=== PATIENT | male | born 1950 | race Caucasian/White ===

== ENCOUNTER 2025-07-31 10:33 | Outpatient (AMB) | payer MEDICARE, SELFPAY ==
[2025-07-31 11:24] VITALS: BP 120/62; PULSE 61; O2SAT 99; BMI 24.3
--- NOTE | 2025-07-31 11:24 | HO.NEPHOV_ITS ---
Vital Signs 07/31/25 11:24 Height 6 ft Weight 179 lb BMI 24.3 BP 120/62 Blood Pressure Location Lt brachial Position Sitting Pulse 61 Pulse Source Pulse Oximeter Pulse Oximetry (%) 99 Oxygen Delivery Method Room Air Intake Visit Reasons: ENP- CKD stg 4 with anemia, confirmed Phlebotomy Specialist Required: No Accompanied by: Self / Same As Patient Allergies pollen extracts Allergy (Verified 07/31/25 11:26) Sneezing HPI Comments Details: 75-year-old gentleman with past medical history of hypertension, hyperlipidemia, CAD s/p CABG and AVR, ischemic cardiomyopathy, carotid artery stenosis, cardiac arrest secondary to VF in 05/2020, pseudoaneurysm of ascending aorta has chronic kidney disease, possibly he had PETER on CKD needing hemodialysis from 09/2022 till 03/2023. He is originally from [place], lives with Xiomara and they have 4 children. 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 CAD//ischemic cardiomyopathy: EF 30% moderate to severe MR and TR in 02/2024. Bioprosthetic aortic valve and CABG in 2019. He is on entresto, metoprolol 25mg BID BPH: on tamsulosin He was getting erythropoeitin 20k every week from [facility] until 3 months ago, he received a transfusion 3 weeks ago for low Hb. She had a bone marrow biopsy at [facility] which showed hypocellular marrow with 20% cellularity . He is extremely weak, easily fatigued. [facility] Medical History (Updated 07/31/25 @ 12:12 by Ronny Rios MD) Stress hyperglycemia Severe protein-calorie malnutrition Ischemic cardiomyopathy Impaired fasting glucose Gastrointestinal hemorrhage Endocarditis Delirium Critical illness myopathy Cataract Cardiogenic shock Cardiac arrest with ventricular fibrillation Acute non-ST elevation myocardial infarction (NSTEMI) Anemia ESRD on hemodialysis Chronic kidney disease PVD (peripheral vascular disease) Left carotid artery stenosis Dyslipidemia Hypertension Former tobacco use Gastritis Coronary artery disease Septic endocarditis Pseudoaneurysm of aorta Surgical History Hx of tonsillectomy History of cataract surgery History of cardiac defibrillator placement S/P AVR Hx of CABG S/P thoracotomy Family History Mother Dementia Son Cerebral palsy Review of Systems Const Details: Const : no body aches, no chills, no excessive sweating and +fatigue Eyes: no blurry vision and no change in vision ENT: no bleeding gums and no change in voice, no dizziness Card: no chest pain, no shortness of breath, no orthopnea, no PND Resp: no cough, no excessive phlegm production, no SOB GI: no abdominal pain and no nausea, no vomiting : no hematuria, no urinary frequency and no difficulty voiding Musc: no abnormal gait, no bone pain Neuro: no abnormal movements, + weakness, no dizziness Psych: no behavioral changes and no change in appetite Endo: no change in body appearance, no cold intolerance,+ fatigue Physical Exam Vital Signs: Last Vital Signs Pulse 61 07/31/25 11:24 BP 120/62 07/31/25 11:24 Pulse Ox 99 07/31/25 11:24 Oxygen Delivery Method Room Air 07/31/25 11:24 BMI result Body Mass Index 24.3 General: not in any acute distress, comfortable, sitting on the chair Nutritional Appearance: well nourished and weight Eyes: normal position, no icterus Neck: No lymphadenopathy, no thyromegaly Resp: bilateral air entry equal, no added sounds present Cardio: normal S1, S2 heard, no murmur heard, no edema GI: soft, nontender, no guarding, no hepatosplenomegaly : bladder normal to inspection, bladder normal to palpation Skin: no rashes or lesions noted and elasticity normal Neuro: oriented to person, oriented to place, oriented to time and moves all extremities Assessment & Plan Assessment & Plan (1) Chronic kidney disease: Code(s): N18.9 - Chronic kidney disease, unspecified Category: Medical (2) Anemia: Code(s): D64.9 - Anemia, unspecified Category: Medical Plan 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 - no family history of CKD, no history of renal stones in the past, NSAID use. - creatinine 3.6 , GFR 17 - will get urinalysis, urine microalbumin creatinine ratio and UPCR - avoid nephrotoxic medications not limited to NSAIDs, contrast etc. - importance of diet, weight loss, adequate blood pressure control, stop smoking well explained to patient - will get hepatitis panel, HIV, TEMO, ANCA, complements, SPEP, UPEP, serum free light chains to rule out other etiologies of CKD. Hypertension: - target blood pressures less than 130/90 mm Hg - continue entresto and metoprolol 25 ER Anemia of chronic kidney disease: - Hb fluctuating betweem 8.2 on 07/12/25 to 9.9 on 07/24/2025 - poor GFR - bone marrow biopsy showing hypocellular marrow - Ferritin 588, Fe 57, TS 30% - will give erythropoietin shots 20k U every other week in the clinic. First dose given today, possibly needs to switch to or [facility] for renal care to ease regular scheduling of biweekly shots. - explained the patient about possible adverse effects of erythropoietin injection including hypertension and risk for stroke. He states he understands the risk but needs them as low hemoglobin will make him fatigued and unable to perform his work. This note is constructed using voice recognition software. While every effort has been made to ensure accuracy [employer] errors may have been included. Total time spent in the clinic is about 40 minutes, 10 minutes on chart review, review of data, 20 minutes on encounter, physical examination, counseling, answering all the questions, 10 minutes on documentation. Orders: Orders UA and rflx microscopic Today D64.9 - Anemia, unspecified, N18.9 - Chronic kidney disease, unspecified Microalbumin, Random (w Creat) Today D64.9 - Anemia, unspecified, N18.9 - Chronic kidney disease, unspecified Total Protein Urine Random Today D64.9 - Anemia, unspecified, N18.9 - Chronic kidney disease, unspecified Parathyroid Hormone Intact Today D64.9 - Anemia, unspecified, N18.9 - Chronic kidney disease, unspecified [place]/Lambda Light Chain Serum Today D64.9 - Anemia, unspecified, N18.9 - Chronic kidney disease, unspecified Hepatitis B,C Profile Today D64.9 - Anemia, unspecified, N18.9 - Chronic kidney disease, unspecified ANCA Vasculitides Today D64.9 - Anemia, unspecified, N18.9 - Chronic kidney disease, unspecified Complement C3 Today D64.9 - Anemia, unspecified, N18.9 - Chronic kidney disease, unspecified Complement C4 Today D64.9 - Anemia, unspecified, N18.9 - Chronic kidney disease, unspecified Basic Metabolic Panel 3 Months D64.9 - Anemia, unspecified, N18.9 - Chronic kidney disease, unspecified Complete Blood Count no Diff 3 Months D64.9 - Anemia, unspecified, N18.9 - Chronic kidney disease, unspecified UA and rflx microscopic 3 Months D64.9 - Anemia, unspecified, N18.9 - Chronic kidney disease, unspecified Basic Metabolic Panel Today D64.9 - Anemia, unspecified, N18.9 - Chronic kidney disease, unspecified IRON PROFILE Today D64.9 - Anemia, unspecified, N18.9 - Chronic kidney disease, unspecified Complete Blood Count no Diff Today D64.9 - Anemia, unspecified, N18.9 - Chronic kidney disease, unspecified Vitamin D 25-OH Total Today D64.9 - Anemia, unspecified, N18.9 - Chronic kidney disease, unspecified Protein Electrophoresis, Serum Today D64.9 - Anemia, unspecified, N18.9 - Chronic kidney disease, unspecified Protein Electrophoresis,Ran Ur Today D64.9 - Anemia, unspecified, N18.9 - Chronic kidney disease, unspecified HIV Ab/Ag Today D64.9 - Anemia, unspecified, N18.9 - Chronic kidney disease, unspecified TEMO Reflex Titer and Pattern Today D64.9 - Anemia, unspecified, N18.9 - Chronic kidney disease, unspecified Microalbumin, Random (w Creat) 3 Months D64.9 - Anemia, unspecified, N18.9 - Chronic kidney disease, unspecified Medications: New darbepoetin art in polysorbat (Aranesp) 25 mcg subcut Q2W 3 mL 3RF 30 days Coding Level of Care Code New Pt Level 5 (53071) Diagnoses Chronic kidney disease N18.9 Anemia D64.9
== END 2025-07-31 12:24 | disposition home or self-care (01) ==
LOC: HO.HKAS 10:34
PROVIDERS: Visit Provider Internal Medicine Critical Care Medicine
DX: N18.9 Chronic kidney disease, unspecified (principal); D64.9 Anemia, unspecified
CPT/HCPCS: 99204

== ENCOUNTER → 2025-07-31 10:33 | Outpatient (BNVA) | payer MEDICARE, SELFPAY | PROVIDERS: Visit Provider Internal Medicine Critical Care Medicine | DX: I12.9 Hypertensive chronic kidney disease with stage 1 through stage 4 chronic kidney disease, or unspecified chronic kidney disease (principal); D63.1 Anemia in chronic kidney disease; N18.4 Chronic kidney disease, stage 4 (severe); Z99.2 Dependence on renal dialysis | CPT/HCPCS: 99202 ==